=== PATIENT | female | born 1975 | race Two or more races ===

== ENCOUNTER 2017-02-02 01:06 | Emergency (ER) | payer OTHER ==
[~2017-02-02] VITALS: Ht 157.5 cm; Wt 65.8 kg
[2017-02-02 02:15] VITALS: BP 130/58
== END 2017-02-02 02:40 | disposition home or self-care (01) ==
LOC: ER 01:07
DX: F31.9 Bipolar disorder, unspecified (principal); F41.9 Anxiety disorder, unspecified; F17.210 Nicotine dependence, cigarettes, uncomplicated; Z76.0 Encounter for issue of repeat prescription